=== PATIENT | female | born 1995 | race Caucasian/White ===

== ENCOUNTER 2018-10-09 10:22 | Outpatient (CLI) | payer MEDICAID ==
[~2018-10-09] VITALS: Ht 152.4 cm; Wt 68.0 kg
[~2018-10-09 10:22] MED LIST: PNV11TAB PO
[2018-10-09 11:26] VITALS: BP 113/71; PULSE 74; RESP 18; Ht 152.4 cm; Wt 68.0 kg
--- NOTE | 2018-10-09 14:06 | TRIAGE ---
OB Triage Datetime Report Generated by CPN: 10/09/2018 14:05 Datetime: 10/09/2018 11:59 Stage of : OB Triage Datetime: 10/09/2018 11:49 Stage of : OB Triage Datetime: 10/09/2018 11:47 Vaginal Exam Dilatation (cms): 0.5 Effacement (%): 50 Station: -2 Exam By: S SHILPI Vaginal Bleeding: None Cervix, Consistency: Soft Cervix, Position: Posterior Presentation 'A': Cephalic Datetime: 10/09/2018 11:32 Labor Evaluation Frequency: 6-7 Monitor Mode: External Duration (sec)2399: 50-70 Pattern: Normal: <= 5 Contractions in 10 Minutes Resting Tone [place]: Relaxed Heart Rate FHR Baseline Rate: 125 Monitor Mode: External US Variability: Moderate 6-25 bpm Accelerations: 10X10 Decelerations: None Category: Category I Pain Assessment Pain Scale: 0 Pain Presence: None/Denies Pain Type: N/A Pain Goal: 3 Pain Relief Measures: Comfort Measures Datetime: 10/09/2018 10:40 Stage of : OB Triage Assessment Type: Triage Maternal Assessment Level of Consciousness: Keenly Alert, Responsive DTR's/Clonus: DTRs 2+; No Clonus Headache: Denies Blurred Vision: No Respiratory Effort: Unlabored; Regular Rhythm; Equal Expansion Breath Sounds, Left: Clear and Equal Breath Sounds, Right: Clear and Equal Nausea/Vomiting: Denies RUQ Epigastric Pain: Denies Facial Edema: None Temperature Route: Axillary Fall Risk Assessment History of Falling: (0) No Secondary Diagnosis: (0) No Ambulatory Aid: (0) Bedrest/Nurse Assist IV Therapy: (0) No Gait: (0) Normal/Bedrest/Immobile Mental Status: (0) Oriented to Own Ability Fall Score: 0 Fall Risk Score Definition: No Risk: No action required Labor Evaluation Frequency: 0 Monitor Mode: External Pattern: Normal: <= 5 Contractions in 10 Minutes Resting Tone [place]: Relaxed Heart Rate FHR Baseline Rate: 125 Monitor Mode: External US Variability: Moderate 6-25 bpm Accelerations: None Pain Assessment Pain Scale: 0 Pain Presence: None/Denies Pain Type: N/A Pain Goal: 3 Pain Relief Measures: Comfort Measures Datetime: 10/09/2018 10:39 Time of Arrival: 10/09/2018 10:15 EGA: 40.0 Arrived By: Ambulatory Arrived From: Office Chief Complaint: REFERRED FROM OFFICE FOR POST DATES, NST/BPP Movement: Present Contractions: Denies/Absent Rupture of Membranes: Denies Vaginal Bleeding: None Vaginal Discharge: Denies Recent Sexual Intercouse: Denies Abdominal Trauma: Not Applicable Patient Complaints: None Time Provider Notified: 10/09/2018 11:50 Provider Notified: CHINTAN Initial Plan: MONITOR, VE
--- NOTE | 2018-10-09 20:36 | PN ---
Triage Information Date/Time 10/09/1811/19/2030 Reason for visit: postdate Weeks of Gestation 40w /Para primigravida Diabetes: none Hypertention: none Additional information here for antepartum test and EFW Objective Vital Signs Date Temp Pulse Resp B/P (MAP) Pulse Ox O2 O2 Flow FiO2 Time Delivery Rate 10/09/18 97.6 74 18 113/71 11:26 (85) Heart Rate: 130's Heart Rate Comments CAT I Contractions: None Exam ftp/50/-2 Results/Medications Imaging Results bpp 10/08 DARREL 9.1 EFW 3798gm Disposition: Discharge Assessment/Plan A IUP 40w for antepartum test P RTH on friday for poss IOL NEEL RODRIGUEZ MD Oct 09, 2018 20:36
== END 2018-10-09 12:10 | disposition home or self-care (01) ==
LOC: OBT 10:22 → L-D 10:22 → OBT 12:10
PROVIDERS: ATTEND Obstetrics & Gynecology
DX: O48.0 Post-term pregnancy (principal); Z3A.40 40 weeks gestation of pregnancy
CPT/HCPCS: 76815; 76818; Z7500; G0463

== ENCOUNTER 2018-10-12 11:09 | Inpatient (IN) | payer MEDICAID ==
[~2018-10-12] VITALS: Ht 152.4 cm; Wt 67.7 kg
[2018-10-12 13:05] VITALS: BP 120/76; PULSE 79; RESP 18; Ht 152.4 cm; Wt 67.7 kg
--- NOTE | 2018-10-12 17:27 | HP ---
Date/Time of Note Date/Time of Note DATE: 10/12/18 TIME: 17:25 OB - History Hx of Present Free Text/Dictation 23-year-old female 1 para 0 at 40 weeks and 3 days gestation admitted for elective induction of labor at 40+ weeks Last Menstrual Period: Dec 24, 2017 Estimated Due Date: Oct 09, 2018 : 1 Para: 0 Care: Good Care Ultrasounds: Normal mid trimester US Obstetrical Complications: None Medical Complications: None Past Family/Social History * Past Medical, Surgical, Family and Obstetric Histories reviewed from chart. Blood Type: O+ Rubella: immune RPR/VDRL: Negative GBS Status: Negative HBsAG: Negative OB Admission Exam Vital Signs Vital Signs Vital Signs Date Temp Pulse Resp B/P (MAP) Pulse Ox O2 O2 Flow FiO2 Time Delivery Rate 10/12/18 98.2 79 18 120/76 13:05 (91) Physical Exam HEENT: WNL Heart: Rhythm Normal Lungs: Clear, Equal Abdomen: WNL Extremities: Normal Reflexes: Normal Cervical Dilatation: Fingertip Effacement: 0% Station: -3 Membranes: Intact Heart Rate: 140's Accelerations: Accelerations Present Decelerations: No Decelerations Varibility: Marked Contractions on Admission: 6-10 Minutes Apart Date/Time Contractions Began: Does not feel contractions Intensity: Mild OB Assessment/Plan Reason for admission: induction of labor Other Assessment: Post term at 40 weeks and 3 days Other plan: Start induction using Cytotec KINJAL STOUT MD Oct 12, 2018 17:27
--- NOTE | 2018-10-12 17:47 | TRIAGE ---
OB Triage Datetime Report Generated by CPN: 10/12/2018 17:47 Datetime: 10/12/2018 16:19 Labor Evaluation Frequency: x5 Monitor Mode: External Duration (sec)2399: 60-100 Quality: Mild Resting Tone [place]: Relaxed Heart Rate FHR Baseline Rate: 125 Monitor Mode: External US FHR Baseline Changes: No Baseline Change Variability: Moderate 6-25 bpm Accelerations: 15X15 Decelerations: None Category: Category I Datetime: 10/12/2018 15:14 Labor Evaluation Frequency: x3 Monitor Mode: External Duration (sec)2399: 70-100 Quality: Mild Resting Tone [place]: Relaxed Heart Rate FHR Baseline Rate: 120 Monitor Mode: External US FHR Baseline Changes: No Baseline Change Variability: Moderate 6-25 bpm Accelerations: 15X15 Decelerations: None Category: Category I Vaginal Exam Dilatation (cms): 0.0 Effacement (%): 0 Station: -3 Exam By: AO Datetime: 10/12/2018 14:14 Labor Evaluation Frequency: x6 Monitor Mode: External Duration (sec)2399: 60-100 Quality: Mild Resting Tone [place]: Relaxed Heart Rate FHR Baseline Rate: 125 Monitor Mode: External US FHR Baseline Changes: No Baseline Change Variability: Moderate 6-25 bpm Accelerations: 15X15 Decelerations: None Category: Category I Datetime: 10/12/2018 13:12 Stage of : OB Triage Assessment Type: Triage Maternal Assessment Level of Consciousness: Keenly Alert, Responsive DTR's/Clonus: DTRs 2+; No Clonus Headache: Denies Blurred Vision: No Respiratory Effort: Unlabored; Regular Rhythm; Equal Expansion Breath Sounds, Left: Clear and Equal Breath Sounds, Right: Clear and Equal Nausea/Vomiting: Denies RUQ Epigastric Pain: Denies Lower Extremities Edema: None Degree: None Upper Extremities Edema: None Degree: None Facial Edema: None Temperature Route: Oral Fall Risk Assessment History of Falling: (0) No Secondary Diagnosis: (0) No Ambulatory Aid: (0) Bedrest/Nurse Assist IV Therapy: (0) No Gait: (0) Normal/Bedrest/Immobile Mental Status: (0) Oriented to Own Ability Fall Score: 0 Fall Risk Score Definition: No Risk: No action required Labor Evaluation Frequency: x1 Monitor Mode: External Duration (sec)2399: 60 Quality: Mild Resting Tone [place]: Relaxed Heart Rate FHR Baseline Rate: 130 Monitor Mode: External US FHR Baseline Changes: No Baseline Change Variability: Moderate 6-25 bpm Accelerations: Prolonged Decelerations: None Category: Category I Pain Assessment Pain Scale: 0 Pain Presence: None/Denies Pain Type: N/A Datetime: 10/12/2018 13:10 Time of Arrival: 10/12/2018 10:49 EGA: 40.3 Arrived By: Ambulatory Arrived From: Home Chief Complaint: F/U NST, BPP Movement: Present Contractions: Denies/Absent Rupture of Membranes: Denies Vaginal Bleeding: None Vaginal Discharge: Denies Recent Sexual Intercouse: Denies Abdominal Trauma: Not Applicable Patient Complaints: None Time Provider Notified: 10/12/2018 15:12 Provider Notified: Dr Hare Initial Plan: NST, BPP Datetime: 10/09/2018 10:40 Fall Score: 0 Fall Risk Score Definition: No Risk: No action required Datetime: 10/09/2018 10:39 EGA: 40.0
[2018-10-12] MEDS ORDERED: OXYTOCIN 30 UNITS/LR 500 ML IV PRN (18:00)
[2018-10-12] MEDS ORDERED: OXYTOCIN 30 UNITS/LR 500 ML IV SCH ×2 (18:00)
[2018-10-12] MEDS ORDERED: IBUPROFEN 600 MG TAB PO PRN (18:00)
[2018-10-12] MEDS ORDERED: METHYLERGONOVINE 0.2 MG INJ IM PRN (18:00)
[2018-10-12] MEDS ORDERED: MISOPROSTOL 200 MCG TAB PR PRN (18:00)
[2018-10-12] MEDS ORDERED: OXYCODONE/ASPIRIN (4.88/325) TAB PO PRN (18:00)
[2018-10-12] MEDS ORDERED: CARBOPROST 250 MCG INJ IM PRN (18:00)
[2018-10-12] MEDS ORDERED: LIDOCAINE 1% (MPF) 30 ML INJ INJ PRN (18:00)
[2018-10-12] MEDS ORDERED: BUTORPHANOL 2 MG INJ IV PRN ×2 (18:00)
[2018-10-12] MEDS: LACTATED RINGER'S 1,000 ML IV SCH (19:23)
[2018-10-12] MEDS: MISOPROSTOL 50 MCG CAPSULE PO PRN (21:44)
[2018-10-13] MEDS: LACTATED RINGER'S 1,000 ML IV SCH ×3 (01:53→17:31)
[2018-10-13] MEDS: MISOPROSTOL 50 MCG CAPSULE PO PRN ×4 (01:53→21:15)
[2018-10-13] MEDS ORDERED: ACETAMINOPHEN 325 MG TAB PO PRN (03:00)
[2018-10-13] MEDS ORDERED: MINERAL OIL LIGHT 10 ML VIAL TOP ONE (08:30)
--- NOTE | 2018-10-13 17:28 | PN ---
Date/Time of Note Date/Time of Note DATE: 10/13/18 TIME: 17:27 OB Subjective Subjective Subjective Has complain of moderate uterine contractions OB Objective Objective Objective Vital signs are stable in general physical exam is unchanged Cervix still appears close to the examiner OB Assessment/Plan Reason for admission: induction of labor Other Assessment: Post term Other plan: Continue induction with Cytotec KINJAL STOUT MD Oct 13, 2018 17:28
[2018-10-14] MEDS: LACTATED RINGER'S 1,000 ML IV SCH ×4 (00:45→20:40)
[2018-10-14] MEDS: MISOPROSTOL 50 MCG CAPSULE PO PRN (01:56)
[2018-10-14] MEDS ORDERED: OXYTOCIN 30 UNITS/LR 500 ML IV SCH ×2 (06:00→07:30)
--- NOTE | 2018-10-14 07:08 | PREAC ---
Date/Time of Note Date/Time of Note DATE: 10/14/18 TIME: 07:07 Anesthesia Eval and Record Evaluation Time Pre-Procedure Interview DATE: 10/14/18 TIME: 07:07 Age 23 Sex female NPO: 8 hrs Preoperative diagnosis IUP Planned procedure L&D Epidural Past Medical History Past Medical History: Includes GI: Obesity : : Surgery & Anesthesia Issues No known issue Meds Anticoagulation: No Beta Taylor within 24 hr: No Reason Beta Taylor not given: Pt. not on B-Taylor Reported Medications [id number] ( 19) 1 Each Tablet, 1 TAB PO DAILY, TAB 10/09/18 Current Medications Lactated Ringer's 1,000 ml @ 125 mls/hr Q8H IV Last administered on 10/14/18at 00:45; Admin Dose 125 MLS/HR; Start 10/12/18 at 17:54 Butorphanol Tartrate (Stadol) 1 mg Q2H PRN IV .PAIN SCALE 1-5; Start 10/12/18 at 18:00 Butorphanol Tartrate (Stadol) 2 mg Q2H PRN IV .PAIN SCALE 6-10 Last administered on 10/14/18at 00:45; Admin Dose 2 MG; Start 10/12/18 at 18:00 Lidocaine (Xylocaine 1% (Mpf)) 30 ml ONCE PRN INJ .EPISIOTOMY; Start 10/12/18 at 18:00 Oxytocin/Lactated Ringer's 500 ml @ 500 mls/hr ONCE POST IV ; Start 10/12/18 at 18:00 Oxytocin/Lactated Ringer's 500 ml @ 125 mls/hr POST IV ; Start 10/12/18 at 18:00 Ibuprofen (Motrin) 600 mg ONCE PRN PO .PAIN 1-5; Start 10/12/18 at 18:00 Oxycodone/Aspirin (Percodan) 2 tab ONCE PRN PO .PAIN 6-10; Start 10/12/18 at 18 :00 Oxytocin/Lactated Ringer's 500 ml @ 0 mls/hr ONCE PRN IV .VAGINAL BLEEDING; Start 10/12/18 at 18:00 Methylergonovine Maleate (Methergine) 0.2 mg ONCE PRN IM .VAGINAL BLEEDING; Start 10/12/18 at 18:00 Carboprost Tromethamine (Hemabate) 250 mcg ONCE PRN IM .VAGINAL BLEEDING; Start 10/12/18 at 18:00 Misoprostol (Cytotec) 1,[address] .VAGINAL BLEEDING; Start 10/12/18 at 18:00 Misoprostol (Cytotec 50 Mcg Capsule) 50 mcg Q4 PRN PO LABOR INDUCTION Last administered on 10/14/18at 01:56; Admin Dose 50 MCG; Start 10/12/18 at 21:00 Acetaminophen (Tylenol Tab) 650 mg Q6H PRN PO MILD PAIN(1-3)OR ELEVATED TEMP; Start 10/13/18 at 03:00 Oxytocin/Lactated Ringer's 500 ml @ 0 mls/hr FOR INDUCTION IV ; Start 10/14/18 at 06:00 Meds reviewed: Yes Allergies Coded Allergies: No Known Allergy (Unverified , 12/25/13) Allergies Reviewed: Yes Labs/Studies Labs Reviewed: Reviewed by anesthesiologist Result Diagram: 10/12/181919 test: Positive Studies: ECG Pre-procedure Exam Last vitals Vital Signs Date Temp Pulse Resp B/P (MAP) Pulse Ox O2 O2 Flow FiO2 Time Delivery Rate 10/12/18 98.2 79 18 120/76 13:05 (91) Airway: Adequate mouth opening, Adequate thyromental dist Mallampati: Mallampati II Teeth: Normal Lung: Normal Heart: Normal ASA Physical Status ASA physical status: 2 Emergency: None Planned Anesthetic Neuraxial: Epidural Planned Pain Management Epidural, Parenteral pain med Pre-operative Attestations Prior to commencing anesthesia and surgery, the patient was re-evaluated, there was verification of: *The patient's identity *The results of appropriate recent lab work and preoperative vital signs *The above evaluation not changing prior to induction *Anesthetic plan, risk benefits, alternative and complications discussed with patient/family; questions answered; patient/family understands, accepts and wishes to proceed. DORETHA BUSTAMANTE MD Oct 14, 2018 07:08
[2018-10-14] MEDS ORDERED: FENTAnyl 2MCG/ML-ROPIV 0.2% 100 ML ONE (07:09)
[2018-10-14] MEDS ORDERED: DIPHENHYDRAMINE 50 MG INJ IV PRN (07:30)
[2018-10-14] MEDS ORDERED: NALOXONE (0.4 MG/ML) INJ IV PRN (07:30)
[2018-10-14] MEDS: FENTAnyl 2MCG/ML-ROPIV 0.2% 100 ML BAG EPI SCH ×4 (08:20→23:06)
[2018-10-14] MEDS: ONDANSETRON 4 MG INJ IV PRN ×2 (08:24→16:11)
[2018-10-14] MEDS ORDERED: AMPICILLIN 2 GM/NS (PMX) 100 ML IVPB ONE (15:30)
--- NOTE | 2018-10-14 17:30 | PN ---
Date/Time of Note Date/Time of Note DATE: 10/14/18 TIME: 17:29 OB Subjective Subjective Subjective Patient has epidural and does not complain of uterine contractions OB Objective Objective Objective Vital signs are stable as well as general physical exam Cervix is 90% to completely effaced 3 4 cm open Membranes are spontaneously ruptured and unknown time Intrauterine pressure catheter was placed as well as scalp electrode OB Assessment/Plan Other Assessment: 40 weeks and 4 days gestation For induction of labor Other plan: Continue Pitocin augmentation of the labor KINJAL STOUT MD Oct 14, 2018 17:30
[2018-10-14] MEDS: AMPICILLIN 1 GM/NS (PMX) 50 ML IVPB SCH ×2 (19:33→23:44)
[2018-10-15] MEDS: FENTAnyl 2MCG/ML-ROPIV 0.2% 100 ML BAG EPI SCH ×2 (03:09→07:33)
[2018-10-15] MEDS: AMPICILLIN 1 GM/NS (PMX) 50 ML IVPB SCH ×2 (03:33→07:40)
[2018-10-15] MEDS: LACTATED RINGER'S 1,000 ML IV SCH (06:00)
[2018-10-15] MEDS ORDERED: TERBUTALINE 1 ML ONE (08:42)
[2018-10-15] MEDS ORDERED: CARBOPROST 250 MCG INJ IM PRN ×3 (09:00→14:00)
[2018-10-15] MEDS ORDERED: OXYTOCIN 30 UNITS/LR 500 ML BAG IV ONE (09:00)
[2018-10-15] MEDS ORDERED: MISOPROSTOL 200 MCG TAB PR PRN ×3 (09:00→14:00)
[2018-10-15] MEDS ORDERED: TERBUTALINE 1 MG/ML INJ SC ONE (09:00)
[2018-10-15] MEDS ORDERED: METHYLERGONOVINE 0.2 MG INJ IM PRN ×2 (09:00→14:00)
[2018-10-15] MEDS ORDERED: CEFAZOLIN 2 GM/50 ML (PMX) 50 ML IVPB SCH (09:00)
[2018-10-15] MEDS ORDERED: OXYTOCIN 30 UNITS/LR 500 ML IV PRN ×3 (09:00→14:00)
[2018-10-15] MEDS ORDERED: AZITHROMYCIN 500MG/NS (PMX) 250 ML IV SCH (09:00)
[2018-10-15] MEDS ORDERED: CEFAZOLIN 2 GM/50 ML (PMX) 50 ML IVPB ONE (09:00)
--- NOTE | 2018-10-15 09:06 | PREAC ---
Date/Time of Note Date/Time of Note DATE: 10/15/18 TIME: 09:05 Anesthesia Eval and Record Evaluation Time Pre-Procedure Interview DATE: 10/15/18 TIME: 09:05 Age 23 Sex female NPO: 8 hrs Preoperative diagnosis Failure to progress and distress Planned procedure Past Medical History Past Medical History: Includes Heme: Anemia : : (1), Para: (0), Gestational age: (40) Surgery & Anesthesia Issues No known issue Meds Anticoagulation: No Beta Taylor within 24 hr: No Reason Beta Taylor not given: Pt. not on B-Taylor Reported Medications [id number] ( 19) 1 Each Tablet, 1 TAB PO DAILY, TAB 10/09/18 Current Medications Lactated Ringer's 1,000 ml @ 125 mls/hr Q8H IV Last administered on 10/15/18at 06:00; Admin Dose 125 MLS/HR; Start 10/12/18 at 17:54 Butorphanol Tartrate (Stadol) 1 mg Q2H PRN IV .PAIN SCALE 1-5; Start 10/12/18 at 18:00 Butorphanol Tartrate (Stadol) 2 mg Q2H PRN IV .PAIN SCALE 6-10 Last administered on 10/14/18at 00:45; Admin Dose 2 MG; Start 10/12/18 at 18:00 Lidocaine (Xylocaine 1% (Mpf)) 30 ml ONCE PRN INJ .EPISIOTOMY; Start 10/12/18 at 18:00 Oxytocin/Lactated Ringer's 500 ml @ 500 mls/hr ONCE POST IV ; Start 10/12/18 at 18:00 Oxytocin/Lactated Ringer's 500 ml @ 125 mls/hr POST IV ; Start 10/12/18 at 18:00 Ibuprofen (Motrin) 600 mg ONCE PRN PO .PAIN 1-5; Start 10/12/18 at 18:00 Oxycodone/Aspirin (Percodan) 2 tab ONCE PRN PO .PAIN 6-10; Start 10/12/18 at 18:00 Oxytocin/Lactated Ringer's 500 ml @ 0 mls/hr ONCE PRN IV .VAGINAL BLEEDING; Start 10/12/18 at 18:00 Methylergonovine Maleate (Methergine) 0.2 mg ONCE PRN IM .VAGINAL BLEEDING; Start 10/12/18 at 18:00 Carboprost Tromethamine (Hemabate) 250 mcg ONCE PRN IM .VAGINAL BLEEDING; Start 10/12/18 at 18:00 Misoprostol (Cytotec) 1,000 mcg ONCE PRN [place] .VAGINAL BLEEDING; Start 10/12/18 at 18:00 Misoprostol (Cytotec 50 Mcg Capsule) 50 mcg Q4 PRN PO LABOR INDUCTION Last administered on 10/14/18at 01:56; Admin Dose 50 MCG; Start 10/12/18 at 21:00 Acetaminophen (Tylenol Tab) 650 mg Q6H PRN PO MILD PAIN(1-3)OR ELEVATED TEMP; Start 10/13/18 at 03:00 Oxytocin/Lactated Ringer's 500 ml @ 0 mls/hr FOR INDUCTION IV Last administered on 10/14/18at 10:33; Admin Dose 1 MLS/HR; Start 10/14/18 at 06:00 Fentanyl/ Ropivacaine 100 ml EPIDURAL INFUSION EPI Last administered on 10/15/18at 07:33; Admin Dose 100 ML; Start 10/14/18 at 07:30 Oxytocin/Lactated Ringer's 500 ml @ 0 mls/hr FOR INDUCTION IV ; Start 10/14/18 at 07:30 Ampicillin 50 ml @ 100 mls/hr Q4H IVPB Last administered on 10/15/18at 07:40; Admin Dose 100 MLS/HR; Start 10/14/18 at 19:30 Cefazolin Sodium/ Dextrose 50 ml @ 100 mls/hr ONCE IVPB ; Start 10/15/18 at 09:00; Status UNV Azithromycin 250 ml @ 250 mls/hr ONCE IV ; Start 10/15/18 at 09:00; Status UNV Oxytocin/Lactated Ringer's 500 ml @ 0 mls/hr ONCE PRN IV .VAGINAL BLEEDING; Start 10/15/18 at 09:00; Status UNV Methylergonovine Maleate (Methergine) 0.2 mg ONCE PRN IM .VAGINAL BLEEDING; Start 10/15/18 at 09:00; Status UNV Carboprost Tromethamine (Hemabate) 250 mcg ONCE PRN IM .VAGINAL BLEEDING; Start 10/15/18 at 09:00; Status UNV Misoprostol (Cytotec) 1,000 mcg ONCE PRN [place] .VAGINAL BLEEDING; Start 10/15/18 at 09:00; Status UNV Terbutaline Sulfate (Brethine) 0.25 mg ONCE ONCE SC ; Start 10/15/18 at 09:00; Stop 10/15/18 at 09:01; Status UNV Cefazolin Sodium/ Dextrose 50 ml @ 100 mls/hr ONCE ONCE IVPB ; Start 10/15/18 at 09:00; Stop 10/15/18 at 09:29; Status UNV Azithromycin 250 ml @ 250 mls/hr ONCE ONCE IVPB ; Start 10/15/18 at 09:30; Stop 10/15/18 at 10:29; Status UNV Meds reviewed: Yes Allergies Coded Allergies: No Known Allergy (Unverified , 12/25/13) Allergies Reviewed: Yes Labs/Studies Labs Reviewed: Reviewed by anesthesiologist Result Diagram: 10/12/181919 test: Positive Studies: ECG (n/a), CXR (n/a) Pre-procedure Exam Last vitals Vital Signs Date Temp Pulse Resp B/P (MAP) Pulse Ox O2 O2 Flow FiO2 Time Delivery Rate 10/12/18 98.2 79 18 120/76 13:05 (91) Airway: Adequate mouth opening, Adequate thyromental dist Mallampati: Mallampati II Teeth: Normal Lung: Normal Heart: Normal ASA Physical Status ASA physical status: 2 Emergency: E Planned Anesthetic Neuraxial: Epidural Planned Pain Management Parenteral pain med Pre-operative Attestations Prior to commencing anesthesia and surgery, the patient was re-evaluated, there was verification of: *The patient's identity *The results of appropriate recent lab work and preoperative vital signs *The above evaluation not changing prior to induction *Anesthetic plan, risk benefits, alternative and complications discussed with patient/family; questions answered; patient/family understands, accepts and wishes to proceed. ENIO CANTU MD Oct 15, 2018 09:06
[2018-10-15] MEDS ORDERED: ROPIVACAINE 0.5 % 30 ML VIAL ONE (09:09)
[2018-10-15] MEDS ORDERED: OXYTOCIN 10 UNIT INJ ONE (09:26)
[2018-10-15] MEDS ORDERED: AZITHROMYCIN 500MG/NS (PMX) 250 ML IVPB ONE (09:30)
[2018-10-15] MEDS ORDERED: CITRIC ACID/NA CITRATE 30 ML CUP PO ONE (09:30)
[2018-10-15] MEDS ORDERED: ONDANSETRON 4 MG INJ IV ONE (09:30)
[2018-10-15] MEDS ORDERED: DEXAMETHASONE 4 MG/ML 1 ML INJ ONE (09:35)
[2018-10-15] MEDS ORDERED: METOCLOPRAMIDE 10 MG INJ ONE (09:35)
[2018-10-15] MEDS ORDERED: ONDANSETRON 4 MG INJ ONE (09:35)
[2018-10-15] MEDS ORDERED: PHENYLephrine 10 MG INJ ONE (09:36)
[2018-10-15] MEDS ORDERED: KETOROLAC 30 MG INJ ONE (09:36)
[2018-10-15] MEDS ORDERED: PHENYLephrine (100 MCG/ML) 10ML SYG ONE (09:36)
[2018-10-15] MEDS ORDERED: MEPERIDINE 100 MG INJ ONE (09:37)
--- NOTE | 2018-10-15 09:54 | PREAC ---
Date/Time of Note Date/Time of Note DATE: 10/15/18 TIME: 09:52 Anesthesia Eval and Record Evaluation Time Pre-Procedure Interview DATE: 10/15/18 TIME: 09:52 Age 23 Sex female NPO: 8 hrs Preoperative diagnosis Failure to progress and Distress Planned procedure Past Medical History Past Medical History: Includes Heme: Anemia : : (12), Para: (0), Gestational age: (40) Surgery & Anesthesia Issues No known issue Meds Anticoagulation: No Beta Taylor within 24 hr: No Reason Beta Taylor not given: Pt. not on B-Taylor Reported Medications [id number] ( 19) 1 Each Tablet, 1 TAB PO DAILY, TAB 10/09/18 Current Medications Lactated Ringer's 1,000 ml @ 125 mls/hr Q8H IV Last administered on 10/15/18at 06:00; Admin Dose 125 MLS/HR; Start 10/12/18 at 17:54 Butorphanol Tartrate (Stadol) 1 mg Q2H PRN IV .PAIN SCALE 1-5; Start 10/12/18 at 18:00 Butorphanol Tartrate (Stadol) 2 mg Q2H PRN IV .PAIN SCALE 6-10 Last administered on 10/14/18at 00:45; Admin Dose 2 MG; Start 10/12/18 at 18:00 Lidocaine (Xylocaine 1% (Mpf)) 30 ml ONCE PRN INJ .EPISIOTOMY; Start 10/12/18 at 18:00 Oxytocin/Lactated Ringer's 500 ml @ 500 mls/hr ONCE POST IV ; Start 10/12/18 at 18:00 Oxytocin/Lactated Ringer's 500 ml @ 125 mls/hr POST IV ; Start 10/12/18 at 18:00 Ibuprofen (Motrin) 600 mg ONCE PRN PO .PAIN 1-5; Start 10/12/18 at 18:00 Oxycodone/Aspirin (Percodan) 2 tab ONCE PRN PO .PAIN 6-10; Start 10/12/18 at 18:00 Oxytocin/Lactated Ringer's 500 ml @ 0 mls/hr ONCE PRN IV .VAGINAL BLEEDING; Start 10/12/18 at 18:00 Methylergonovine Maleate (Methergine) 0.2 mg ONCE PRN IM .VAGINAL BLEEDING; Start 10/12/18 at 18:00 Carboprost Tromethamine (Hemabate) 250 mcg ONCE PRN IM .VAGINAL BLEEDING; Start 10/12/18 at 18:00 Misoprostol (Cytotec) 1,000 mcg ONCE PRN [place] .VAGINAL BLEEDING; Start 10/12/18 at 18:00 Misoprostol (Cytotec 50 Mcg Capsule) 50 mcg Q4 PRN PO LABOR INDUCTION Last administered on 10/14/18at 01:56; Admin Dose 50 MCG; Start 10/12/18 at 21:00 Acetaminophen (Tylenol Tab) 650 mg Q6H PRN PO MILD PAIN(1-3)OR ELEVATED TEMP; Start 10/13/18 at 03:00 Oxytocin/Lactated Ringer's 500 ml @ 0 mls/hr FOR INDUCTION IV Last administered on 10/14/18at 10:33; Admin Dose 1 MLS/HR; Start 10/14/18 at 06:00 Fentanyl/ Ropivacaine 100 ml EPIDURAL INFUSION EPI Last administered on 10/15/18at 07:33; Admin Dose 100 ML; Start 10/14/18 at 07:30 Oxytocin/Lactated Ringer's 500 ml @ 0 mls/hr FOR INDUCTION IV ; Start 10/14/18 at 07:30 Ampicillin 50 ml @ 100 mls/hr Q4H IVPB Last administered on 10/15/18at 07:40; Admin Dose 100 MLS/HR; Start 10/14/18 at 19:30 Cefazolin Sodium/ Dextrose 50 ml @ 100 mls/hr ONCE IVPB ; Start 10/15/18 at 09:00; Status UNV Azithromycin 250 ml @ 250 mls/hr ONCE IV ; Start 10/15/18 at 09:00; Status UNV Oxytocin/Lactated Ringer's 500 ml @ 0 mls/hr ONCE PRN IV .VAGINAL BLEEDING; Start 10/15/18 at 09:00; Status UNV Methylergonovine Maleate (Methergine) 0.2 mg ONCE PRN IM .VAGINAL BLEEDING; Start 10/15/18 at 09:00; Status UNV Carboprost Tromethamine (Hemabate) 250 mcg ONCE PRN IM .VAGINAL BLEEDING; Start 10/15/18 at 09:00; Status UNV Misoprostol (Cytotec) 1,000 mcg ONCE PRN [place] .VAGINAL BLEEDING; Start 10/15/18 at 09:00; Status UNV Terbutaline Sulfate (Brethine) 0.25 mg ONCE ONCE SC ; Start 10/15/18 at 09:00; Stop 10/15/18 at 09:01; Status UNV Cefazolin Sodium/ Dextrose 50 ml @ 100 mls/hr ONCE ONCE IVPB ; Start 10/15/18 at 09:00; Stop 10/15/18 at 09:29; Status UNV Azithromycin 250 ml @ 250 mls/hr ONCE ONCE IVPB ; Start 10/15/18 at 09:30; Stop 10/15/18 at 10:29; Status UNV Meds reviewed: Yes Allergies Coded Allergies: No Known Allergy (Unverified , 12/25/13) Allergies Reviewed: Yes Labs/Studies Labs Reviewed: Reviewed by anesthesiologist Result Diagram: 10/12/181919 test: Positive Studies: ECG (n/a), CXR (n/a) Pre-procedure Exam Last vitals Vital Signs Date Temp Pulse Resp B/P (MAP) Pulse Ox O2 O2 Flow FiO2 Time Delivery Rate 10/12/18 98.2 79 18 120/76 13:05 (91) Airway: Adequate mouth opening, Adequate thyromental dist Mallampati: Mallampati II Teeth: Normal Lung: Normal Heart: Normal ASA Physical Status ASA physical status: 2 Emergency: E Planned Anesthetic Neuraxial: Epidural Planned Pain Management Epidural, Parenteral pain med Pre-operative Attestations Prior to commencing anesthesia and surgery, the patient was re-evaluated, there was verification of: *The patient's identity *The results of appropriate recent lab work and preoperative vital signs *The above evaluation not changing prior to induction *Anesthetic plan, risk benefits, alternative and complications discussed with patient/family; questions answered; patient/family understands, accepts and wishes to proceed. ENIO CANTU MD Oct 15, 2018 09:54
--- NOTE | 2018-10-15 10:11 | PAC ---
Date/Time of Note Date/Time of Note DATE: 10/15/18 TIME: 10:11 Post-Anesthesia Notes Post-Anesthesia Note Last documented vital signs Vital Signs Date Temp Pulse Resp B/P (MAP) Pulse Ox O2 O2 Flow FiO2 Time Delivery Rate 10/15/18 98.2 79 18 120/76 10:05 (91) Activity: WNL Respiratory function: WNL Cardiovascular function: WNL Mental status: Baseline Pain reasonably controlled: Yes Hydration appropriate: Yes Nausea/Vomiting absent: Yes ENIO CANTU MD Oct 15, 2018 10:11
[2018-10-15] MEDS ORDERED: OXYTOCIN 30 UNITS/LR 500 ML IV SCH (10:14)
--- NOTE | 2018-10-15 10:26 | OPR ---
Operative Report Planned Procedure Free Text/Dictation I was called by RN to evaluate the heart tracing of this patient is currently in labor, undergoing induction, status post SROM 14 hours ago. Reported to have recurrent variable deceleration, status post IV fluid and terbutaline and did not resolve. Patient continued to have prolonged variable deceleration despite of amnioinfusion. Tracing reviewed. Category 2. Due to recurrent spontaneous variable prolonged deceleration despite of being Pitocin off with spontaneous contractions as well as failure to progress since her last exam about 12 hours ago discussed with patient regarding primary low transverse section. Risk and benefit of section discussed with patient including risk of infection, bleeding, damage to surrounding structures including Bowel and bladder and risk of blood transfusion including but not limited to blood borne infection including HIV, hepatitis B and C and transfusion reaction and informed consent was obtained. Verbalized understanding. All questions were answered. Primary attending aware. Case had been signed off to me. OR and charge nurse was called for emergency section. Procedure date Oct 15, 2018 Procedure(s) Primary low transverse section via Pfannenstiel skin incision Performed by see signature line Clinical Business Analyst: A 2nd Clinical Business Analyst Surgical scrub Anesthesiologist: ENIO CANTU MD Pre-procedure diagnosis 1. Nonreassuring heart tracing 2 failure to progress. 3. Prolonged repetitive variable deceleration 4. Failed induction 5, prolonged rupture membrane [id number] Anesthesia Type: Ezchp0z epidural Post-Procedure Post-procedure diagnosis Same Face presentation noted at the time of uterine incision Findings Live Baby [], Apgars [] and [], weight [], position [], [] presentation []cord. Estimated Blood Loss: 600 - 700 mls Specimen(s) Placenta was sent to pathology cord gas and cord blood Grafts/Implant(s) none Complication(s) none Pt Condition post procedure: stable Disposition: PACU Procedure Description Patient is a 23-year-old G1, P0 that currently undergoing induction, with P itocin status post prolonged rupture membrane noted to have recurrent variable prolonged deceleration that did not resolve with amnioinfusion. Failure to progress noted. Due to failure to progress and failed induction and prolonged rupture membrane with nonreassuring heart tracing discussed with the patient regarding section. Risk and benefit of section i ncluding risk of infection, bleeding, damage to surrounding structures including bowel and bladder and risk of blood transfusion including but not limited to blood borne infection including HIV, hepatitis B and C and transfusion reaction discussed with the patient in detail. Informed consent was obtained. Or anesthesia NICU was notified. Called for emergency section. Patient was taken to the OR and was placed in the dorsal supine position. After assurance about adequate epidural anesthesia and prepped and draped in the dorsal supine position a Pfannenstiel skin incision was made and was carried down to the underlying layer of fascia using a scalpel. Then the fascial incision was transversely dissected. The superior aspect of fascial incision was grasped using Suzanne, was elevated and was dissected off of the rectus muscle using sharp and Bovie. Then the inferior aspect of fascial incision grasped using Suzanne, was elevated and was dissected off of the parameters muscle in a similar fashion. Rectus muscle was dissected in midline. Parietal peritoneum was identified and entered bluntly. Lower uterine segment was identified. Uriah retractor was placed. Lower uterine segment was incised transversely with careful attention to the bladder. Intra uterine cavity entered. Amniotic fluid noted to be slightly very light meconium changed. Baby's head was noted to be in the face presentation and was rotated in delivered in the occiput anterior while clinical assistant was applying fundal pressure. The anterior shoulder then posterior shoulder and the rest of the body delivered without any complication. Cord was clamped and cut. Baby was handed to the NICU team. Cord blood and cord gas was obtained. Placenta was delivered intact and was sent to pathology. Uterine cavity was cleared of all clots and debris's. Uterine incision repaired in 2 layer using 1-0 Monocryl. First layer used for hemostasis and the second layer used for imbrication. Excellent hemostasis of the incision was obtained. Gutters were cleared of all clots and debris's. Then after assurance about adequate hemostasis of the incision then the laps were removed. Parietal peritoneum was repaired using 2-0 Vicryl in a continuous fashion. Rectus muscle was reapproximated using 2-0 Vicryl in a continuous fashion. Then the fascia was repaired using 1- 0 vicryl in continous fashion, Irrigation of suppleness tissue performed using warm copious amount of normal saline. Suppleness tissue was reapproximated using 2-0 plain gut. The skin was reapproximated using 3-0 Monocryl in a subcortical fashion. Fundus was firm at the end of the delivery. Hemostasis was ruptured. 800 mcg Cytotec placed vaginally. Patient tolerated procedure well. Sponge, needle counts were correct x2. Patient was then transferred to recovery room in stable condition PORFIRIO BARLOW MD Oct 15, 2018 10:26
[2018-10-15] MEDS ORDERED: HYDROmorphONE 0.5 MG/0.5 ML SYG IV PRN ×2 (10:30)
[2018-10-15] MEDS ORDERED: LANOLIN HPA 1 PKT TOP PRN ×2 (10:30→14:00)
[2018-10-15] MEDS ORDERED: morphine 2 MG INJ IV PRN ×2 (10:30)
[2018-10-15] MEDS ORDERED: HYDROCODONE/APAP (5/325) TAB PO PRN ×3 (10:30→14:00)
[2018-10-15] MEDS ORDERED: NACL 0.9% 3 ML SYG IV SCH (10:30)
[2018-10-15] MEDS ORDERED: NALBUPHINE HCL (10 MG/1 ML) INJ IV PRN (10:30)
[2018-10-15] MEDS ORDERED: ACETAMINOPHEN 500 MG TAB PO PRN (10:30)
[2018-10-15] MEDS ORDERED: ONDANSETRON 4 MG INJ IV PRN (10:30)
[2018-10-15] MEDS ORDERED: DIPHENHYDRAMINE 50 MG INJ IV PRN (10:30)
[2018-10-15] MEDS ORDERED: NALOXONE (0.4 MG/ML) INJ IV PRN (10:30)
[2018-10-15] MEDS ORDERED: KETOROLAC 30 MG INJ IV PRN (10:30)
[2018-10-15] MEDS ORDERED: IBUPROFEN 600 MG TAB PO SCH (12:00)
[2018-10-15 13:30] VITALS: BP 129/79; PULSE 97; RESP 18
[2018-10-15] MEDS ORDERED: LACTATED RINGER'S 1,000 ML IV SCH (13:51)
[2018-10-15] MEDS ORDERED: IBUPROFEN 800 MG TAB PO SCH (14:00)
[2018-10-15] MEDS ORDERED: OXYCODONE/ACETAMINOPHEN (5/325) TAB PO PRN (14:00)
[2018-10-15] MEDS ORDERED: MEASLES,MUMPS,RUBELLA VACCINE INJ SC* ONE (14:00)
[2018-10-15] MEDS ORDERED: NA PHOSPHATE/BIPHOS 133 ML ENEMA PR PRN (14:00)
[2018-10-15] MEDS: CEFAZOLIN 2 GM/50 ML (PMX) 50 ML IVPB SCH ×2 (14:59→22:21)
[2018-10-15 16:00] VITALS: BP 120/72; PULSE 85; RESP 18
[2018-10-15] MEDS: CLINDAMYCIN 300 MG CAP PO SCH ×2 (17:47→23:59)
[2018-10-15 20:00] VITALS: BP 110/62; PULSE 99; RESP 18
[2018-10-15] MEDS: SENNA/DOCUSATE NA (8.6MG/50MG) TAB PO SCH (20:56)
[2018-10-16 00:12] VITALS: BP 114/77; PULSE 89; RESP 17
[2018-10-16] MEDS ORDERED: LACTATED RINGER'S 1,000 ML IV SCH (01:00)
[2018-10-16 04:30] VITALS: BP 121/69; PULSE 99; RESP 19
[2018-10-16] MEDS: CLINDAMYCIN 300 MG CAP PO SCH ×4 (05:48→23:46)
[2018-10-16] MEDS: CEFAZOLIN 2 GM/50 ML (PMX) 50 ML IVPB SCH (06:24)
[2018-10-16 08:00] VITALS: BP 110/66; PULSE 104; RESP 18
[2018-10-16] MEDS: SENNA/DOCUSATE NA (8.6MG/50MG) TAB PO SCH ×2 (08:59→22:27)
[2018-10-16] MEDS ORDERED: DIPHTH/TET/ACEL PERTUSS (ADULT) 0.5 ML VIAL IM* ONE (09:00)
[2018-10-16] MEDS ORDERED: BISACODYL 10 MG SUPP PR ONE (10:30)
[2018-10-16] MEDS: IBUPROFEN 800 MG TAB PO SCH ×2 (14:13→22:27)
[2018-10-16 17:29] VITALS: BP 102/64; PULSE 84; RESP 18
--- NOTE | 2018-10-16 18:44 | QN ---
Documentation Comment S passing flatus but no BM O vss afebrile abdomen soft wound dry calf neg for tenderness lochia min A stable post primary c/s #1 P remove NEEL Pugh MD Oct 16, 2018 18:44
[2018-10-16 20:35] VITALS: BP 115/78; PULSE 83; RESP 18
[2018-10-17 04:15] VITALS: BP 114/74; PULSE 66; RESP 18
[2018-10-17] MEDS: IBUPROFEN 800 MG TAB PO SCH ×3 (05:43→21:31)
[2018-10-17] MEDS: CLINDAMYCIN 300 MG CAP PO SCH ×4 (05:43→23:52)
[2018-10-17 08:00] VITALS: BP 101/56; PULSE 67; RESP 16
[2018-10-17] MEDS: SENNA/DOCUSATE NA (8.6MG/50MG) TAB PO SCH ×2 (10:27→21:31)
[2018-10-17 16:00] VITALS: BP 114/63; PULSE 72; RESP 18
[2018-10-17 19:30] VITALS: BP 105/71; PULSE 77; RESP 19
--- NOTE | 2018-10-17 22:53 | QN ---
Documentation Comment no b.m passing flatus ambulating wel vss afebrile abdomen soft wound dry lochia min calf neg for tenderness A stable s/p PC/S #2 P d/s home in am NEEL RODRIGUEZ MD Oct 17, 2018 22:53
[2018-10-18 03:30] VITALS: BP 127/69; PULSE 68; RESP 18
[2018-10-18] MEDS: IBUPROFEN 800 MG TAB PO SCH (05:33)
[2018-10-18] MEDS: CLINDAMYCIN 300 MG CAP PO SCH ×2 (05:33→11:28)
--- NOTE | 2018-10-18 06:47 | PD.PPDC ---
MEDIA LIAISON OFFICER Discharge Instruction Diagnosis [id number] Final Diagnosis: Pvtzu9b s/p primary c/s for non reassuring FHT Condition [id number] Patient Condition: Xbfph7c Stable Diet Roltd0Ts Diet: Fmsmu2k Resume Regular Diet Activity/Restrictions [id number] Activity: Wkgfd7a May Shower Crhxl4Af Restrictions: Rehbd2b No Exercising No Lifting Minimize Stair-climbing No Sexual Activity Nothing in the Vagina No Lawler No Tampons, douche Wound/Drain Care Instructions [id number] Wound/Drain Care Instructions: Wacls0b Wash with soap and water Keep clean and dry Follow-up Follow-up with Physician: 2, Week/Weeks Return to clinic for Rfbrl0Kq MECHANICAL DESIGNER Instructions: Gvqys1o Fever greater than 101 Chills Worsening abdominal pain Excessive Vaginal Bleeding More than 2 pads per hour Unable to tolerate diet Oiwsa5Ut OB Instructions: Ledqz0c Breast Tenderness Depression Blurried Vision Headache Kcfnw9Sl Surgical Instructions: Ndmbf6l Incisional Drainage Incisional Redness NEEL RODRIGUEZ MD Oct 18, 2018 06:47
--- NOTE | 2018-10-18 06:53 | DS ---
Date/Time of Note Date/Time of Note DATE: 10/18/18 TIME: 06:51 Obstetrical Discharge Record Final Diagnosis Final Diagnosis: Term delivered Other Final Diagnosis nonreassuring FHT Section Section: Primary Primary Indication CAT II Complications Other (postterm) Induction: Yes Rupture of Membranes: No Condition on Discharge Physical Assessment Last Vitals: vss afebrile Voiding: Yes Bowel Movement: Yes Breast: Soft, non-tender Fundus: Firm Abdomen and Incision: soft wound healing ok Episiotomy: n/a Calf Tenderness: No Patient Condition: Stable NEEL RODRIGUEZ MD Oct 18, 2018 06:53
[2018-10-18 08:00] VITALS: BP 107/73; PULSE 63; RESP 16
[2018-10-18] MEDS ORDERED: MEASLES,MUMPS,RUBELLA VACCINE INJ SC* ONE (09:00)
[2018-10-18] MEDS ORDERED: DIPHTH/TET/ACEL PERTUSS (ADULT) 0.5 ML VIAL IM* ONE (09:00)
[2018-10-18] MEDS: SENNA/DOCUSATE NA (8.6MG/50MG) TAB PO SCH (09:28)
--- NOTE | 2018-10-19 15:06 | DELSUM ---
Delivery Summary A-C Datetime Report Generated by CPN: 10/19/2018 15:06 DELIVERY PERSONNEL Copra Processor: Sebunnya, Phoebe MATERNAL INFORMATION Delivery Anesthesia: Epidural Medications in Delivery: SEE ANESTHESIA Delivery QBL (ml): 700 Placenta Cultured: Yes Maternal Complications: Other LABOR SUMMARY EDC: 10/09/2018 00:00 No. Babies in Womb: 1 Attempted: No Labor Anesthesia: Epidural LABOR INFORMATION Reason for Induction: Postterm Onset of Labor: 10/13/2018 19:00 Cervical Ripening Agents: Cervidil Oxytocin: Induction Group B Beta Strep: Negative Antibiotics # of Doses: 7 Antibiotics Time of Last Dose: 10/15/2018 07:40 Steroids Given: None Reason Steroids Not Administered: Not Applicable MEMBRANES Membranes Rupture Method: Spontaneous Rupture of Membranes: 10/13/2018 19:00 Length of Rupture (hr): 38.45 Amniotic Fluid Color: Clear Amniotic Fluid Amount: Moderate Amniotic Fluid Odor: Normal STAGES OF LABOR Stage 3 hr: 0 Stage 3 min: 1 Total Time in Labor hr: 38 Total Time in Labor min: 28 CSECTION DELIVERY Primary Indication: Nonreassuring Stat Secondary Indication: Nonreassuring Stat CSection Urgency: Emergency CSection Incidence: Primary Labor: Labor Elective: Nonelective CSection Incision: Lower Uterine Transverse BABY A INFORMATION Infant Delivery Date/Time: 10/15/2018 09:27 Method of Delivery: Born in Route : No : N/A Forceps: N/A Vacuum Extraction: N/A Shoulder Dystocia : N/A SHOULDER DYSTOCIA BABY A Infant Delivery Date/Time: 10/15/2018 09:27 PRESENTATION/POSITION BABY A Presentation: Cephalic Cephalic Presentation: Vertex Vertex Position: Right Occipital Posterior Breech Presentation: N/A PLACENTA INFORMATION BABY A Placenta Delivery Time : 10/15/2018 09:28 Placenta Method of Delivery: Manual Removal Placenta Status: Delivered SCORES BABY A Heart Rate 1 min: >100 bpm Resp Effort 1 min: Slow, Irregular Reflex Irritability 1 min: Cough/Sneeze/Pulls Away Muscle Tone 1 min: Active Motion Color 1 min: Blue/Pale Resuscitation Effort 1 min: Tactile Stimulation SCORE 1 MIN: 7 Heart Rate 5 min: >100 bpm Resp Effort 5 min: Good Cry Reflex Irritability 5 min: Cough/Sneeze/Pulls Away Muscle Tone 5 min: Active Motion Color 5 min: Body [place], Extremit Blue Resuscitation Effort 5 min: Tactile Stimulation SCORE 5 MIN: 9 INFORMATION BABY A Gestational Age at Delivery: 40.6 Gestational Status: Full Term- 39- 40.6 Weeks Infant Outcome : Liveborn, with signs of life Condition : Stable Infant Sex: Female IDENTIFICATION/MEDS BABY A ID Band Number: [id number] ID Band Location: Right Leg; Left Arm Sensor Applied: Yes Sensor Number: [id number] Sensor Location : Cord Clamp Vitamin K Given : Not Given Erythromycin Given: Not Given WEIGHT/LENGTH BABY A Birthweight (gm): 3420 Infant Weight (lb): 7 Weight (oz): 9 Infant Length (in): 18.00 Length (cm): 45.72 CORD INFORMATION BABY A No. Cord Vessels: 3 Nuchal Cord : N/A Nuchal Cord- Other: 0 True Knot: 0 Cord Blood Taken: Yes Banking/Donate Info: no Suction: Mouth; Nose ASSESSMENT BABY A Infant Complications: Decreased Variability; Multiple Late Decels; Multiple Variable Decels Complications- Other: AMNIIOINFUSION FOR VARIABLE DECELS Physical Findings at Delivery: Within Normal Limits Infant Respirations: Appears Normal Director Global Market Research/ALS Called : No Transferred To: Remains with Mother
== END 2018-10-18 15:06 | disposition home or self-care (01) | DRG 788 ==
LOC: OBT 11:09 → L-D 11:09 → OBT 17:23 → L-D 18:16 → PP1 10-15 13:18
PROVIDERS: ADMIT Obstetrics & Gynecology; ATTEND Obstetrics & Gynecology
PROC: 3E0E7GC Introduction of Other Therapeutic Substance into Products of Conception, Via Natural or Artificial Opening (ICD-10-PCS; 2018-10-14)
PROC: 3E033VJ Introduction of Other Hormone into Peripheral Vein, Percutaneous Approach (ICD-10-PCS; 2018-10-14)
PROC: 10H07YZ Insertion of Other Device into Products of Conception, Via Natural or Artificial Opening (ICD-10-PCS; 2018-10-14)
PROC: 10H073Z Insertion of Monitoring Electrode into Products of Conception, Via Natural or Artificial Opening (ICD-10-PCS; 2018-10-14)
PROC: 10D00Z1 Extraction of Products of Conception, Low, Open Approach (ICD-10-PCS; principal; 2018-10-15 10:00)
DX: O48.0 Post-term pregnancy (principal); O76 Abnormality in fetal heart rate and rhythm complicating labor and delivery; O32.3XX0 Maternal care for face, brow and chin presentation, not applicable or unspecified; O62.1 Secondary uterine inertia; O42.92 Full-term premature rupture of membranes, unspecified as to length of time between rupture and onset of labor; Z3A.40 40 weeks gestation of pregnancy; Z37.0 Single live birth
CPT/HCPCS: 36415; 62322; 76815; 76818; 82803; 85025; 85610; 85730; 86592; 86850; 86900; 86901; 87340; 88307; 99464; G0463; J0290; J0595; J0690; J1100; J1885; J2175; J2370; J2405; J2590; J2765; J2795; J3010; J3105; J7120